=== PATIENT | female | born 1980 | race Caucasian/White ===

== ENCOUNTER → 2017-02-17 | Outpatient (CLI) | payer OTHER ==
[2016-02-06 10:17] VITALS: BP 156/109
[2017-02-17 08:24] LABS: BASOPHILS # (AUTO) 0.1 X10^3/uL (0.0-0.1); BASOPHILS % (AUTO) 1.1 % (0.2-1.0); EOSINOPHILS # (AUTO) 0.3 x10^3/uL (0.0-0.2); EOSINOPHILS % (AUTO) 4.2 % (0.9-2.9); HEMATOCRIT 41.9 % (36.0-47.0); HEMOGLOBIN 14.7 g/dL (12.0-16.0); LYMPHOCYTES # (AUTO) 2.2 X10^3/uL (1.3-2.9); LYMPHOCYTES % (AUTO) 34.4 % (21.0-51.0); MEAN CORPUSCULAR HEMOGLOBIN 30.4 pg (27.0-34.0); MEAN CORPUSCULAR HGB CONC 35.1 g/dL (33.0-35.0); MEAN CORPUSCULAR VOLUME 86.4 fL (80.0-100.0); MEAN PLATELET VOLUME 7.8 fL (7.4-11.0); MONOCYTES # (AUTO) 0.4 x10^3/uL (0.3-0.8); NEUTROPHILS # (AUTO) 3.5 x10^3/uL (2.2-4.8); NEUTROPHILS % (AUTO) 54.3 % (42.0-75.0); PLATELET COUNT 276 X10^3/uL (150.0-450.0); RED BLOOD COUNT 4.85 X10^6/uL (3.5-5.4); RED CELL DISTRIBUTION WIDTH 12.9 % (11.6-16.5); WHITE BLOOD COUNT 6.4 X10^3/uL (3.6-10.0)
[2017-02-17 08:38] LABS: ALANINE AMINOTRANSFERASE 67 Units/L (12-78); ALBUMIN 4.3 g/dL (3.4-5.0); ALKALINE PHOSPHATASE 45 Units/L (46-116); ASPARTATE AMINO TRANSFERASE 28 Units/L (15-37); BLOOD UREA NITROGEN 17 mg/dL (7-18); CALCIUM 8.7 mg/dL (8.5-10.1); CARBON DIOXIDE 28.2 mmol/L (21-32); CHLORIDE 103 mmol/L (98-107); CHOL/HDL RATIO 6.8 (0.0-5.0); CHOLESTEROL 239 mg/dL (0-200); CREATININE 0.94 mg/dL (0.55-1.02); GLUCOSE 83 mg/dL (65-99); HDL CHOLESTEROL 35 mg/dL (40-60); SODIUM 140 mmol/L (136-145); TOTAL PROTEIN 7.3 g/dL (6.4-8.2); TRIGLYCERIDES 87 mg/dL (0-150); eGFR BLACK RACES > 60 (>60); eGFR NON BLACK RACES > 60 (>60)
== END ==
LOC: LAB 08:02
PROVIDERS: ATTEND Obstetrics & Gynecology Obstetrics
DX: F41.8 Other specified anxiety disorders (principal); I10 Essential (primary) hypertension; E28.2 Polycystic ovarian syndrome; E66.8 Other obesity
CPT/HCPCS: 36415; 80053; 80061; 83525; 85025

== ENCOUNTER 2017-06-04 08:40 | Emergency (ER) | payer OTHER ==
[2017-06-04 08:53] VITALS: BP 131/86; BMI 34.2
--- NOTE | 2017-06-04 09:11 | DR.GENAD ---
HPI - PCP Primary Care Physician: LISA HAIR - HPI Comment HPI Comment: Pt awakened this morning with swollen right cheek. She has some pain but denies fever. She is aware of "bad teeth". - Complaint/Symptoms Chief Complaint Doctors Comments: Right facial swelling Chief Complaint:: PT C/O THE RIGHT SIDE OF HER FACE SWELLING THIS AM PT DENIES ANY TRAUMA DENTAL CARIES.... Self Treatment fo Chief Complaint: BENADRYL - Source History Provided: Patient - Mode of Arrival Mode of Arrival: Ambulatory - Timing Onset of Chief Complaint: 06/03/17 Came on: On Awakening - Duration Duration: Since Onset How lon Duration: Hours - Severity Severity: Mild PMH - PMH Past Medical History: Yes Past Medical History: Hypertension Past Surgical History: Yes Surgical History: - Family History History of Family Medical Conditions: Yes Family Medical History: Diabetes Mellitus, Cancer, [place], Hypertension - Social History Does patient currently use any type of tobacco product: Yes Have you used tobacco products in the last 12 months: Yes Type of Tobacco Use: Cigarettes How many years tobacco product used: 14 Does any household member use tobacco: No Alcohol Use: Rarely Do you use any recreational Drugs:: No Lives With: Family Lives Where: Home - infectious screening In the last 2 months have you had wt loss of >10#?: YES Have you had fever, night sweats or hemotysis?: No Have you traveled outside the country in the last 6 months?: No Isolation: Standard ROS - Review of Systems Constitutional: No Symptoms Reported ENTM: See HPI Respiratoy: No Symptoms Reported Cardiovascular: No Symptoms Reported Gastrointestinal/Abdominal: No Symptoms Reported Genitourinary: No Symptoms Reported Neurological: No Symptoms Reported Musculoskeletal: No Symptoms Reported Psychiatric: No Symptoms Reported All Other Systems: Reviewed and Negative PE - Vital Signs Vitals: Temperature 98.5 F Pulse Rate 76 Respiratory Rate 18 Blood Pressure 131/86 O2 Sat by Pulse Oximetry 97 - General Limitations: No Limitations General Appearance: Alert, In No Apparent Distress - Head Head Exam: Normal Inspection - ENT ENT Exam: Other (right upper 1st molar with caries and gngival edema and TTP but w/o drainage.) - Neck Neck Exam: Normal Inspection - Chest Chest Inspection: Normal Inspection - Respiratory Respiratory Exam: Normal Lung Sounds Bilat Respiratory Exam: Bilateral Clear to Auscultation - Cardiovascular Cardiovascular Exam: Regular Rate, Normal Rhythm, Normal Heart Sounds MDM - Differential Diagnosis Differential Diagnosis: toothache, tooth abscess, acne vulgaris Course - Reevaluation 1st: Unchanged ROR - Labs Reviewed Laboratory Results Reviewed?: No - Diagnosis Discharge Problem: Tooth abscess, Tooth caries - Discharge Plan Disposition: 01 HOME, SELF-CARE Condition: Stable Prescriptions: Ampicillin Trihydrate 500 mg PO QID #28 capsule Ibuprofen [MOTRIN TAB 800 MG *] 800 mg PO TID #30 tab - Follow ups/Referrals Follow ups/Referrals: AP GONZALEZ [Primary Care Provider] - 3 days - Instructions Instructions: Dental Abscess, [id number]
== END 2017-06-04 09:32 | disposition home or self-care (01) ==
LOC: ER 08:56
DX: K04.7 Periapical abscess without sinus (principal); K02.9 Dental caries, unspecified
CPT/HCPCS: 99281; 99282

== ENCOUNTER → 2017-07-28 | Outpatient (CLI) | payer OTHER | LOC: RT 08:55 | PROVIDERS: ATTEND Obstetrics & Gynecology Obstetrics | DX: G56.00 Carpal tunnel syndrome, unspecified upper limb (principal) | CPT/HCPCS: 95911 ==

== ENCOUNTER → 2017-11-19 | Outpatient (CLI) | payer OTHER ==
[2017-11-19 13:38] LABS: BILIRUBIN,URINE NEGATIVE (NEGATIVE); BLOOD/HEMOGLOBIN,URINE NEGATIVE (NEGATIVE); GLUCOSE, URINE NEGATIVE (NEGATIVE); KETONES,URINE NEGATIVE (NEGATIVE); LEUKOCYTE ESTERASE ,URINE 1+ (NEGATIVE); NITRITES,URINE NEGATIVE (NEGATIVE); PROTEIN,URINE NEGATIVE (NEGATIVE); UROBILINOGEN,URINE NORMAL (NORMAL)
[2017-11-19 13:46] LABS: BASOPHILS # (AUTO) 0.1 X10^3/uL (0.0-0.1); BASOPHILS % (AUTO) 0.8 % (0.2-1.0); EOSINOPHILS # (AUTO) 0.4 x10^3/uL (0.0-0.2); EOSINOPHILS % (AUTO) 4.7 % (0.9-2.9); HEMATOCRIT 38.7 % (36.0-47.0); HEMOGLOBIN 13.6 g/dL (12.0-16.0); LYMPHOCYTES # (AUTO) 2.5 X10^3/uL (1.3-2.9); LYMPHOCYTES % (AUTO) 33.4 % (21.0-51.0); MEAN CORPUSCULAR HEMOGLOBIN 30.8 pg (27.0-34.0); MEAN CORPUSCULAR VOLUME 87.9 fL (80.0-100.0); MEAN PLATELET VOLUME 7.4 fL (7.4-11.0); MONOCYTES # (AUTO) 0.5 x10^3/uL (0.3-0.8); MONOCYTES % (AUTO) 6.3 % (0.0-13.0); NEUTROPHILS # (AUTO) 4.2 x10^3/uL (2.2-4.8); NEUTROPHILS % (AUTO) 54.8 % (42.0-75.0); PLATELET COUNT 305 X10^3/uL (150.0-450.0); RED CELL DISTRIBUTION WIDTH 13.1 % (11.6-16.5); WHITE BLOOD COUNT 7.6 X10^3/uL (3.6-10.0)
[2017-11-19 13:54] LABS: APPEARANCE,URINE CLEAR (CLEAR); BACTERIA,URINE TRACE /HPF (NEGATIVE); COLOR,URINE YELLOW (YELLOW); RBC,URINE 0-1 /HPF (NEGATIVE); SQUAMOUS EPITHELIAL CELL,UR FEW /HPF (NEGATIVE)
[2017-11-19 13:55] LABS: ALANINE AMINOTRANSFERASE 37 Units/L (12-78); ALBUMIN 3.8 g/dL (3.4-5.0); ALKALINE PHOSPHATASE 41 Units/L (46-116); ASPARTATE AMINO TRANSFERASE 25 Units/L (15-37); BLOOD UREA NITROGEN 10 mg/dL (7-18); CALCIUM 8.8 mg/dL (8.5-10.1); CHLORIDE 100 mmol/L (98-107); CREATININE 0.88 mg/dL (0.55-1.02); SODIUM 135 mmol/L (136-145); TOTAL PROTEIN 6.8 g/dL (6.4-8.2); eGFR BLACK RACES > 60 (>60); eGFR NON BLACK RACES > 60 (>60)
--- NOTE | 2017-11-19 13:57 | RAD ---
HISTORY: Preoperative exam for carpal tunnel surgery Study: Two views of the chest Comparison: None Findings: The trachea is midline. The cardiac silhouette is unremarkable. The lungs are clear without focal i nfiltrate or effusion. IMPRESSION: 1. No acute cardiopulmonary disease. Reported By:
== END ==
LOC: LAB 13:14
PROVIDERS: ATTEND Orthopaedic Surgery
DX: Z01.818 Encounter for other preprocedural examination (principal); Z79.899 Other long term (current) drug therapy; Z11.8 Encounter for screening for other infectious and parasitic diseases; Z01.810 Encounter for preprocedural cardiovascular examination; Z01.811 Encounter for preprocedural respiratory examination; G56.01 Carpal tunnel syndrome, right upper limb
CPT/HCPCS: 36415; 71046; 80053; 81001; 85025; 87640; 87641; 93005; 93010

== ENCOUNTER 2017-11-25 08:33 | Day surgery (SDC) | payer OTHER ==
[2017-11-25] MEDS ORDERED: ANCEF 1 GM IV PREMIX* 1 GM/50 ML BAG IV ONE (09:50)
[2017-11-25] MEDS ORDERED: D5 LR 1000 ML 1,000 ML IV ONE (09:50)
[2017-11-25] MEDS ORDERED: BACITRACIN VIAL ONE (09:52)
[2017-11-25] MEDS ORDERED: FENTANYL INJ 100 mcg ONE (10:36)
[2017-11-25] MEDS ORDERED: MARCAINE 0.25% INJ ONE (10:44)
[2017-11-25 10:47] LABS: SERUM PREGNANCY TEST, QUAL NEGATIVE <10 mIU/mL
[2017-11-25] MEDS ORDERED: NS IRRIGATION 1000 ML 1,000 ML with BACITRACIN VIAL 50,000 UNT IR ONE ×2 (10:58)
[2017-11-25] MEDS ORDERED: BACTROBAN OINT ONE (11:39)
[2017-11-25] MEDS ORDERED: ZOFRAN INJ 4 MG VIAL IVP PRN ×2 (11:49→11:54)
[2017-11-25] MEDS ORDERED: NORCO 5/325 MG TAB PO PRN (11:49)
[2017-11-25] MEDS ORDERED: REGLAN INJ 10 MG VIAL IVP PRN (11:54)
[2017-11-25] MEDS ORDERED: BENADRYL INJ 50 MG VIAL IVP PRN (11:54)
[2017-11-25] MEDS ORDERED: PHENERGAN INJ 25 MG IVP PRN (11:54)
[2017-11-25] MEDS: DILAUDID INJ IVP PRN ×3 (12:00→12:40)
[2017-11-25 13:34] VITALS: BP 119/80
[2017-11-25] MEDS ORDERED: DIPRIVAN VIAL ONE (15:34)
[2017-11-25] MEDS ORDERED: ULTANE GAS IN ONE (15:34)
[2017-11-25] MEDS ORDERED: VERSED ONE (15:34)
--- NOTE | 2017-11-29 14:31 | OR.GENERIC ---
Post-Op Note Generic - Post-Op Note Operative Report: PREOPERATIVE DIAGNOSIS-right WRIST CARPAL TUNNEL SYNDROME pOSTOPERATIVE DIAGNOSIS-right WRIST CARPAL TUNNEL SYNDROME pROCEDURE right WRIST CARPAL TUNNEL RELEASE iNDICATION- Mrs. Mcdonald is a 37-year-old female who has been dealing with a RIGHT hand pain and numbness for almost a year now. She was referred to me by her primary care physician for a possible surgical intervention. She presents to the office and reported increasing pain and numbness especially in the radial 3 and half fingers on the RIGHT hand. She also had nerve conduction study which confirms that she has median nerve compression at the carpal tunnel at the RIGHT wrist. She has tried and failed all the conservative managements in the form of injections and braces. She indicated to me that she would want to proceed with surgical intervention. patient was taken to the procedure i in detail. Pre-and postprocedure instructions were discussed with her. The benefits and risks involved in the surgical procedure were dis Discussed with her. arthroscopic versus open carpal tunnel release procedures were discussed with her The risks and benefits of both the subtleties where discussed with her. She wanted to proceed with an open carpal tunnel release. Complications including but not limited to infection, median nerve injury, radial artery injury, recurrence, inability to relieve the symptoms, need for further procedures, persistent pain, stiffness of the wrist and fingers with a few off the complications which were discussed . Patient consented for the surgery. Preoperative-she was seen in the preoperative holding area. Limb was marked. Patient was seen by the latexer. She got the appropriate antibiotic. She again consented for the proc Procedure. Procedure-patient was brought to the operating room. She was placed supine on the operating tab Table, RIGHT hand placed on a hand ta Table. Tourniquet applied but not inflated. She was placed under general ane anesthesia with endotracheal intub Intubation. The RIGHT upper limb prepped a And draped. Tourniquet inflated to 250 millimeters of mercury. The proposed skin incision was m Marked. A point corresponding to the intersection of cardinal line with the fourth ray radial aspect was plotted. Another point along the fourth ray radial aspect was placed just distal to the wrist crease. An incision was placed connectin Connecting these total points. Dissection carried down through the skin and the subcutaneous fascia. Superficial branch of radial nerve isolated and protected throughout the procedure. dissection taken through the palmar apo neurosis. The transverse carpal ligament was exposed. the ligament was visualized well. The prospective site of release was identified after protecting the structures by a righ RIGHT angle retractor. The most ulnar aspect of TCL close to the hamate was visualized and marked for release. An #11 blade was used to make a stab incision in the superficial part of the transverse carpal ligament. the rest of the proximal and distal transverse carpal ligament was incis incised over the protection of a [place]. It was made sure that the release was complete both proximally and dista Distally. the contents of the canal and the median nerve where visualized. No swelling or abnormality noted in the nerve or the canal. Tourniquet deflated and hemostasis maintained. The surrounding tissues were infi infiltrated with local anesthetic. Wound was closed in layers and sterile dressing applied. Patient was woken up from the surger Surgery. she was extubated successfully. She was shifted to the PACU stable and afebrile condition. The family was updated about the procedure. Postoperative instructions were given to the patient which included keeping the dressing clean and dry. Limb by elevation, rest, ice and compression. Patient was also sent home with a p prescription for pain medication as . Well as antibiotic. She was given a follow-up appointment date and time.
== END 2017-11-25 13:30 | disposition home or self-care (01) ==
LOC: SURG1 08:33
PROVIDERS: ATTEND Orthopaedic Surgery
PROC: 01N50ZZ Release Median Nerve, Open Approach (ICD-10-PCS; principal; 2017-11-25 10:00)
DX: G56.01 Carpal tunnel syndrome, right upper limb (principal)
CPT/HCPCS: 36415; 84703; A4222; S0020; J0690; J1170; J2250; J3010; J3490; J7120

== ENCOUNTER 2018-01-19 12:13 | Emergency (ER) | payer OTHER ==
[2018-01-19 12:18] VITALS: BP 166/115; BMI 32.5
--- NOTE | 2018-01-19 13:09 | DR.GENAD ---
HPI - PCP Primary Care Physician: LISA Celeste HPI Comment HPI Comment: WORSE TODAY. - Complaint/Symptoms Chief Complaint Doctors Comments: TOOTHACHE, SORETHROAT TIMES ONE DAY. Chief Complaint:: RIGHT SIDE TOOTH ABCESS, HARD TO SWALLOW ANYTHING - Nurses notes reviewed Nurses Notes Review: Yes - Source History Provided: Patient - Mode of Arrival Mode of Arrival: Ambulatory - Timing Onset of Chief Complaint: 01/18/18 Came on: Suddenly - Duration Duration: Constant Duration: Days - Severity Severity: Moderate PMH - PMH Past Medical History: Yes Past Medical History: Anxiety, Hypertension Past Surgical History: Yes Surgical History: , Ortho Surgery - Family History History of Family Medical Conditions: Yes Family Medical History: Diabetes Mellitus, Cancer, [place], Hypertension - Social History Type of Tobacco Use: Cigarettes Does any household member use tobacco: No Alcohol Use: None Do you use any recreational Drugs:: No Lives With: Family Lives Where: Home - infectious screening In the last 2 months have you had wt loss of >10#?: NO Have you had fever, night sweats or hemotysis?: No Have you traveled outside the country in the last 6 months?: No Isolation: Standard ROS - Review of Systems Constitutional: No Symptoms Reported Eyes: No Symptoms Reported ENTM: Mouth Pain. negative: Loose Teeth Respiratoy: No Symptoms Reported Cardiovascular: No Symptoms Reported Gastrointestinal/Abdominal: No Symptoms Reported Genitourinary: No Symptoms Reported Neurological: No Symptoms Reported Musculoskeletal: No Symptoms Reported Integumentary: No Symptoms Reported Hematologic/Lymphatic: No Symptoms Reported Endocrine: No Symptoms Reported All Other Systems: Reviewed and Negative PE - Vital Signs Vitals: Temperature 99.2 F Pulse Rate 84 Respiratory Rate 20 Blood Pressure 166/115 O2 Sat by Pulse Oximetry 97 - General Limitations: No Limitations General Appearance: Alert - Head Head Exam: Normal Inspection - Eyes Eye exam: Normal Appearance - ENT ENT Exam: Normal External Ear Exam External Ear Exam: Normal External Inspection TM/Canal Exam: Bilateral Normal Nose Exam: Normal Nose Exam Mouth Exam: Normal Inspection - Neck Neck Exam: Trachea Midline - Chest Chest Inspection: Symmetric Chest Wall Rise - Respiratory Respiratory Exam: Normal Lung Sounds Bilat Respiratory Exam: Bilateral Clear to Auscultation - Cardiovascular Cardiovascular Exam: Regular Rate, Normal Rhythm, Normal Heart Sounds - Abdominal Exam Abdominal Exam: Soft. negative: Tenderness - Extremities Extremities Exam: Normal Inspection - Back Back Exam: Normal Inspection - Neurologic Neurological Exam: Alert, Oriented X3 - Psychiatric Psychiatric Exam: Normal Affect, Normal Mood MDM - Differential Diagnosis Differential Diagnosis: DENTAL ABSCESS, SORE THROAT, GINGIVITIS Course - Treatment Treatment: SEE ORDERS. - Education/Counseling Education/Counseling: Patient, Education Educated On: Diagnosis, Needs for Follow Up - Diagnosis Discharge Problem: Tooth abscess, Sore throat - Discharge Plan Disposition: 01 HOME, SELF-CARE Condition: Stable Prescriptions: Amoxicillin [Amoxil 875 mg] 875 mg PO Q12H #20 tab Ibuprofen [MOTRIN TAB 800 MG *] 800 mg PO Q8H PRN #30 tab PRN Reason: Pain/Inflammation - Follow ups/Referrals Follow ups/Referrals: AP GONZALEZ [Primary Care Provider] - 3 days - Instructions Instructions: Gingivitis, [id number], Dental Abscess, [id number], Sore Throat, [id number] Additional Instructions: RETURN TO ED IF WORSE. FOLLOW UP WITH DENTIST OF YOUR CHOICE THIS WEEK.
[2018-01-19] MEDS ORDERED: TORADOL 60 MG VIAL IM ONE (13:18)
[2018-01-19] MEDS ORDERED: ROCEPHIN VIAL 1 GM IM ONE (13:18)
[2018-01-19] MEDS ORDERED: TORADOL 60 MG VIAL ONE (13:20)
[2018-01-19] MEDS ORDERED: ROCEPHIN VIAL 1 GM ONE (13:20)
[2018-01-19] MEDS ORDERED: XYLOCAINE 1 % (PLAIN) ONE (13:21)
== END 2018-01-19 13:39 | disposition home or self-care (01) ==
LOC: ER 12:20
DX: K04.7 Periapical abscess without sinus (principal); J02.9 Acute pharyngitis, unspecified
CPT/HCPCS: 96372; 99282; J0696; J1885; J2001